=== PATIENT | female | born 1995 | race Two or more races ===

== ENCOUNTER → 2017-12-23 | Outpatient (REF) | payer OTHER ==
[2017-12-23 10:53] LABS: PLATELET COUNT, AUTOMATED 188 K/uL (150-450)
== END ==
PROVIDERS: ATTEND Family Medicine
DX: R10.9 Unspecified abdominal pain (principal)
CPT/HCPCS: 82040; 82247; 82310; 82374; 82435; 82565; 82947; 84075; 84132; 84155; 84295; 84443; 84450; 84460; 84520; 85025; 85651

== ENCOUNTER → 2017-12-23 | Outpatient (CLI) | payer OTHER ==
--- NOTE | 2017-12-23 13:45 | RADIOLOGY IMAGING REPORT ---
FACILITY: [facility] PATIENT NAME: Dominga Resendiz : 1995 MR: [id number] V: [id number] EXAM DATE: ORDERING PHYSICIAN: DERIK HINES TECHNOLOGIST: Location: [facility] - [place] Patient: Dominga Resendiz : 1995 Visit/Account:[id number] Date of Sevice: 12/23/2017 SPLEEN Indication: Left upper quadrant pain, low abdominal pain, decreased white blood cell count. Comparison: None. Findings: Spleen demonstrate normal echotexture and normal size. The left kidney is 10.2 cm in length . There is no hydronephrosis mass or calculus. IMPRESSION: Normal left upper quadrant ultrasound. Specifically, the spleen and the left kidney are n ormal. Report Dictated By: Gigi Blanchard at 12/23/2017 1:39 PM Report E-Signed By: Gigi Blanchard at 12/23/2017 1:41 PM WSN:[id number]
== END ==
LOC: US 11:51
PROVIDERS: ATTEND Family Medicine
DX: D72.819 Decreased white blood cell count, unspecified (principal); R10.12 Left upper quadrant pain
CPT/HCPCS: 76705